=== PATIENT | male | born 1980 | race Caucasian/White ===

== ENCOUNTER → 2017-03-02 | Outpatient (CLI) | payer BC ==
--- NOTE | ~2017-03-02 | TM ---
[id number] NAME: JAKI FERRELL MR#: [id number] PROCEDURE PERFORMED Treadmill stress test. DESCRIPTION Resting heart rate is 89. Resting blood pressure is 122/79 mmHg. Baseline EKG shows normal sinus rhythm. PROCEDURE The patient was made to exercise on a standard Steven protocol. Total exercise time is 11 minutes, completing 2 minutes of stage 2 on a standard Steven protocol. Test stopped because target heart rate achieved. No complaints of chest pain or extreme shortness of breath. Maximal heart rate obtained is 175, which is 96% of maximum predicted heart rate. Maximal blood pressure obtained is 160/[address]-T wave changes suggestive of ischemia. No arrhythmias noted. CONCLUSION 1. Good exercise tolerance. 2. There is no clinical, hemodynamic or EKG evidence of ischemia at good workload (96% of maximum predicted heart rate, 12.8 METs). 3. Normal heart rate and blood pressure response. 4. Normal regular treadmill stress test with excellent baseline exercise tolerance for age. Dictated by...
== END | disposition home or self-care (01) ==
LOC: CEKG 06:59
DX: R07.9 Chest pain, unspecified (principal); R53.83 Other fatigue
CPT/HCPCS: 93017